=== PATIENT | female | born 1990 ===

== ENCOUNTER 2018-07-12 16:01 | Emergency (ER) | payer MEDICAID, OTHER ==
[2018-07-12 16:24] VITALS: BP 119/67; TEMP 98.6; O2SAT 100
[2018-07-12 17:12] VITALS: PULSE 79
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
[2018-07-12 17:35] VITALS: RESP 18
== END 2018-07-12 16:54 | disposition home or self-care (01) ==
LOC: H.ER 16:01
DX: O26.92 Pregnancy related conditions, unspecified, second trimester (principal); F41.0 Panic disorder [episodic paroxysmal anxiety]; J44.9 Chronic obstructive pulmonary disease, unspecified; Z3A.12 12 weeks gestation of pregnancy